=== PATIENT | female | born 1970 | race Hispanic/Latino ===

== ENCOUNTER → 2017-07-23 | Outpatient (CLI) | payer OTHER ==
--- NOTE | 2017-07-27 12:55 | Diagnostic Imaging Report ---
INDICATION: Screening. The current study was also evaluated with a Computer Aided Detection (CAD) system. No prior examinations are available for comparison. This is a baseline exam. FINDINGS: There is a moderate amount of residual fibroglandular tissue bilaterally. There are a few benign-type calcifications. Questionable irregular density in the posterior central aspect of the left breast. There is no other dominant mass, spiculated lesion, or suspicious calcifications identified. Skin, nipples, and axilla are unremarkable. IMPRESSION: Category 0, further imaging needed. ACR BI-RADS Category 0: Incomplete. (Needs additional imaging evaluation). Result letter will be mailed to the patient. Note: At least 10% of breast cancer is not imaged by mammography. Questionable irregular density in the posterior central left breast. Further evaluation with spot compression views and if warranted ultrasound is recommended to exclude the possibility of a discrete underlying mass. Dictated by: Dictated on workstation # [id number]
== END ==
LOC: RAD 08:29
PROVIDERS: ATTEND Family Medicine
DX: Z12.31 Encounter for screening mammogram for malignant neoplasm of breast (principal)
CPT/HCPCS: 77067

== ENCOUNTER → 2017-09-03 | Outpatient (CLI) | payer OTHER ==
--- NOTE | 2017-09-03 17:41 | Diagnostic Imaging Report ---
Left breast diagnostic mammogram. Tomography is also performed. COMPARISON: 07/23/2017. INDICATION: Nodule in the medial aspect of the left breast. The current study was also evaluated with a Computer Aided Detection (CAD) system. FINDINGS: Focal compression view and tomography evaluation is suggestive of fibroglandular tissues with no definite underlying mass. IMPRESSION: The focal compression views performed to assess the asymmetry along the medial aspect of the left breast are suggestive of summation artifact of parenchyma. Ultrasound evaluation pending. ACR BI-RADS Category 0: Incomplete. (Needs additional imaging evaluation). Result letter will be mailed to the patient. Note: At least 10% of breast cancer is not imaged by mammography. Dictated on workstation # [id number]
--- NOTE | 2017-09-03 17:50 | Diagnostic Imaging Report ---
Left breast ultrasound. INDICATION: Left breast asymmetry seen medially on the mammogram. FINDINGS: Four quadrants and retroareolar region of the left breast were scanned with no underlying abnormality seen. IMPRESSION: Negative study. The medial left breast asymmetry is likely related to summation artifact of parenchyma. Six-month follow-up mammogram to ensure stability or resolution is recommended. ACR BI-RADS Category 3: Probably benign findings. Dictated on workstation # [id number]
== END ==
LOC: RAD 09:14
PROVIDERS: ATTEND Family Medicine
DX: R92.8 Other abnormal and inconclusive findings on diagnostic imaging of breast (principal)
CPT/HCPCS: 76641